=== PATIENT | female | born 1965 ===

== ENCOUNTER 2017-02-20 19:53 | Emergency (ER) | payer BC | END 2017-02-20 23:23 | disposition home or self-care (01) | LOC: ER 19:53 | DX: M96.830 Postprocedural hemorrhage of a musculoskeletal structure following a musculoskeletal system procedure (principal); T81.31XA Disruption of external operation (surgical) wound, not elsewhere classified, initial encounter; Z91.041 Radiographic dye allergy status | CPT/HCPCS: 99283 ==